=== PATIENT | female | born 1940 | race African-American/Black ===

== ENCOUNTER 2019-05-16 14:31 | Emergency (ER) | payer MEDICARE, OTHER ==
[~2019-05-16] VITALS: Ht 165.1 cm; Wt 72.0 kg
[2019-05-16] MEDS ORDERED: ACETAMINOPHEN 500MG TABLET PO ONE (15:45)
[2019-05-16 17:24] VITALS: BP 160/82
== END 2019-05-16 17:25 | disposition home or self-care (01) ==
LOC: ER 14:31
DX: M54.9 Dorsalgia, unspecified (principal); E78.00 Pure hypercholesterolemia, unspecified; I10 Essential (primary) hypertension; V49.49XA Driver injured in collision with other motor vehicles in traffic accident, initial encounter; Y93.89 Activity, other specified; Y92.89 Other specified places as the place of occurrence of the external cause; Y99.8 Other external cause status
CPT/HCPCS: 99283